=== PATIENT | female | born 1970 | race Caucasian/White ===

== ENCOUNTER → 2019-05-03 17:50 | Outpatient (CLI) | payer OTHER, SELFPAY ==
[2019-05-06 14:29] LABS: HPV Reflexed? NOT INDICATED
== END ==
PROVIDERS: Family Provider Family Medicine; PCP Family Medicine; Referring Provider Nurse Practitioner Adult Health; Visit Provider Nurse Practitioner Adult Health
DX: Z01.419 Encounter for gynecological examination (general) (routine) without abnormal findings (principal)
CPT/HCPCS: 88175; G0145

== ENCOUNTER → 2019-06-09 10:57 | Outpatient (CLI) | payer OTHER, SELFPAY ==
[2019-06-09 12:16] LABS: Anion Gap 6 (5-15); BUN 17 mg/dL (7-18); BUN/Creat Ratio 20.4 RATIO (10-20); Chloride 107 mmol/L (98-107); Cholesterol 181 mg/dL (200); Creatinine, Serum 0.83 mg/dL (0.55-1.02); EST Glomerular Filtration Rate 77 mL/min (>60); Est Glom Filt Rate - Afr Amer 93 mL/min (>60); Glucose 97 mg/dL (74-106); High Density Lipoprotein 67 mg/dL; Potassium 3.9 mmol/L (3.5-5.1); Sodium Level 142 mmol/L (136-145); Thyroid Stim Hormone (TSH) 0.77 uIU/mL (0.358-3.74); Triglycerides 90 mg/dL; Very Low Density Lipoprotein 18 mg/dL (5-40)
== END ==
PROVIDERS: Family Provider Family Medicine; PCP Family Medicine; Referring Provider Nurse Practitioner Adult Health; Visit Provider Nurse Practitioner Adult Health
DX: Z13.220 Encounter for screening for lipoid disorders (principal); Z13.1 Encounter for screening for diabetes mellitus; R68.89 Other general symptoms and signs
CPT/HCPCS: 36415; 80048; 80061; 84443

== ENCOUNTER 2019-11-09 13:00 | Outpatient (RCR) | payer OTHER, SELFPAY ==
--- NOTE | 2019-10-04 16:29 | HP.PTEVAL_ITS ---
Patient's Visit Information AXEL GARDNER is a 49 year old F referred to Physical Therapy by SHERRON Caceres with a diagnosis of neck pain. Date of Evaluation: 10/04/19 Physical Therapist: Deonte Long DPT, OCS, CSCS - Visit Plan Frequency: 2-3x /Week Duration: 2-4 Weeks Plan: 2-3x/week for 2-4 weeks for... 1. STM, manual traction adn passive ext ROM neck with UT stretches and lev scap stretches R to HEP(monitor Danitza with extension ROM and COLLINS/shoulder symptoms). 2. Monitor shoulder pain for activity mdoification for tendonitis and RC adn postural strength. - Subjective Findings: Having pain since beginning of June. Could deal with it but accompanying COLLINS have gotten worse in the last month. Ernesto says tear in R shoulder has caused these sypmtoms. Pain is in R shoulder, up R side of neck adn into jaw and ear and sometimes shooting down arm. pain is intermittent but more consisitent lately. Dressing and undressing woudl make it hurt prior. 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 That job since March. COLLINS start on R posterior occiput and get intense. daily for last 7 days. Gave naproxen 2x/day which has helped. Sleep is OK but hard to get comfortable at times. Not missed any work. Basic ADLs are getting done but frustrating at times. Hobbies include reading and walkign dogs and has been able. - Pain COLLINS Pain Intensity (Out of 10): 3 Pain Intensity Range: 0, 10 Comment: at work is worse. Neck pain R Pain Intensity (Out of 10): 3 Pain Intensity Range: 0, 6 - Objective Posture is forward head and forward shoulder posture. Scapula and elbow adn wrist ROM B WNL without pain. B shoulder ROM full without pain. resisted R shoulder ext rotation adn flexion slightly painful. cervical AROM 35 ext with R neck pain, full flexion, SB adn rotation are symmetricala dn tissue stretching consistently on R side. reflexes 2/3 bi and tri. Sensation WNl to gross light touch in UE>. No myotomal strength abnormalities. Repeated protruision: W neck and into head to 4/10 from baseling 3/10. c/s retraction: NE during, NE 10/24 baseline. repeated ext: centralization 10/24, abolish. + R edgar ma, + R mary. - sulcus. No kassidy tenderness in shoulder or scapular/cervical muscles but R lev scap and UT tight vs L. - Goals Goal 1:: Patient COLLINS abolished and neck pain 80% improved. Goal Time Frame: 4-6 Weeks Goal 2:: Neck Oswestry<10%. Goal Time Frame: 4-6 Weeks Goal 3:: I approp HEP for managemnt of HEP. Goal Time Frame: 4-6 Weeks - Rehabilitation Potential Physical Therapy Diagnosis: cervical derangement vs shoulder pain tendoinitis Rehabilitation Potential: Fair - Anticipated Interventions Patient/Client Instruction: Educate patient on: Condition, Plan of Care For the Purpose of:: To decrease pain, To increase ROM Therapeutic Exercise to Include: Strength training, Postural training, Flexibilty training, Passive ROM, Active ROM For the Purpose of:: To decrease pain, To improve muscle performance and motor function, To increase tolerance to activity/condition/position, To improve gait and locomotor functions Manual Therapy Techniques to Include: Mobilization, Passive ROM, Soft tissue mobilization For the Purpose of:: To decrease pain, To increase ROM, To improve nutrient delivery to tissue, To improve muscle performance and motor function Thank you for the opportunity to evaluate your patient. For Medicare and Medicare HMO plans, please review the plan of care and approve it. It will need to be FAXED BACK to us at [phone] for Medicare purposes. For Medicare only, by signing this I certify the plan of care. Please let me know if there are questions or concerns regarding this plan of care. Physician Signature: ___Date:
--- NOTE | 2019-11-09 13:47 | HP.PTDCSUM ---
HP - PT D/C Summary It has been my pleasure to treat AXEL GARDNER under orders from Clarisa Landrum, SHERRON, for the diagnosis of neck pain for a total of 10 visit(s). Discharge Date: 11/09/19 Please see the following information for a summary of their discharge status. - Subjective Subjective: R shoulder hurting the last two days, slight COLLINS last couple days . 6/10 pain today. Shoulder realy hurts.Does not know why she is hurting lately. - Pain COLLINS Pain Intensity (Out of 10): 0 Neck pain R Pain Intensity (Out of 10): 0 R SH Pain Intensity (Out of 10): 6 Left pain neck Pain Intensity (Out of 10): 0 - Overall Improvement % Improvement: 50 - Objective Objective/Function: Full aROM neck to 90 ext adn 80 B rotation adn 20 SB without pain. No tenderness in neck. UE AROM WFL today with some slight increased discomfort end of flexion but no painful arc. Strength is 4- in shoulder without obvious pain. - ext rotation lag test. - drop arm. + hernández anil but pain is not responding like impingement and rotations resisted do not cause pain. No tenderness in supra or infra or subscap. Overall , COLLINS AND NECK PAIN MUCH BETTER BUT SHOULDER PAIN RIGHT IS INTERMITTENT AND SEEMINGLY WITHOUT OBVIOUS PATTERN. - Goals Goal 1:: Patient COLLINS abolished and neck pain 80% improved. Goal Progress: Goal Met, for most part Goal 2:: Neck Oswestry<10%. Goal Progress: 20% Goal 3:: I approp HEP for managemnt of HEP. Goal Progress: Goal Met - Plan Plan: recommend return to doctor for next medical step due to lack of progress with shoulder pain. - D/C Information Discharge Comments: Pt progressed well with neck and COLLINS pain. R shoulder pain continues to be an intermittent issue without obvious pattern. recommend return to physician for next appropriate medical step. If there are questions or concerns regarding this patient's physical therapy, please feel free to call me at [phone]. Thank you for the referral of this patient. Sincerely, Deonte Long, DPT, OCS, CSCS
== END 2019-11-09 19:00 | disposition home or self-care (01) ==
LOC: PT 13:00
PROVIDERS: PCP Family Medicine; Referring Provider Nurse Practitioner Family; Visit Provider Nurse Practitioner Family
DX: M54.2 Cervicalgia (principal)
CPT/HCPCS: 97035; 97110; 97140; 97161; 97164; 97530

== ENCOUNTER → 2019-11-10 10:02 | Outpatient (CLI) | payer OTHER, SELFPAY ==
--- NOTE | 2019-11-10 10:05 | RAD_ITS ---
STUDY: X-RAY - CERVICAL SPINE REASON FOR EXAM: Female, 49 years old. right shoulder pain goes up the neck x 4 months no injury TECHNIQUE: 5 view(s) of the cervical spine were obtained. COMPARISON: 11/22/2013 FINDINGS: Normal anterior atlantoaxial articulation. Normal odontoid process. There is reversal of the normal cervical lordosis. Focal disc space narrowing and osteophyte formation at C5/C6 consistent with degenerative disc disease with focal kyphosis. Normal visualized intervertebral neuroforamina. The soft tissue structures are unremarkable. RAD/Cerv Spine 4 or 5 Views IMPRESSION: Continued focal degenerative disc disease at C5/C6 with focal kyphosis. Electronically Signed: Rashi Gaspar MD at 13:48 EST Tel , Service support ,
--- NOTE | 2019-11-10 10:05 | RAD_ITS ---
STUDY: X-RAY - RIGHT SHOULDER REASON FOR EXAM: Female, 49 years old. right shoulder pain goes up the neck x 4 months no injury TECHNIQUE: 4 view(s) of the shoulder. COMPARISON: None. FINDINGS: Normal glenohumeral articulation. Normal acromioclavicular joint. Normal acromion. Normal humeral head and visualized proximal humerus. The soft tissue structures are unremarkable. Normal visualized pulmonary apex. RAD/Shoulder min 2 Views IMPRESSION: Normal x-ray examination of the shoulder. Electronically Signed: Rashi Gaspar MD at 11:48 EST Tel , Service support ,
== END ==
PROVIDERS: PCP Family Medicine; Referring Provider Family Medicine; Visit Provider Family Medicine
DX: M54.2 Cervicalgia (principal); M75.41 Impingement syndrome of right shoulder
CPT/HCPCS: 72050; 73030

== ENCOUNTER → 2019-11-23 16:57 | Outpatient (CLI) | payer OTHER, SELFPAY ==
--- NOTE | 2019-11-23 17:00 | MRI_ITS ---
STUDY: MRI CERVICAL SPINE WITHOUT CONTRAST REASON FOR EXAM: Female, 49 years old. DDD. Neck pain into jaw and into shoulders into back of head causing H/A TECHNIQUE: Standardized fat and water weighted pulse sequences were obtained in the sagittal and axial planes. COMPARISON: None FINDINGS: Normal foramen magnum and brainstem-cervical cord junction. Normal craniovertebral junction. Normal anterior atlantoaxial articulation. Normal odontoid process. Decreased cervical lordosis. Normal vertebral bodies and posterior osseous elements. C2-3: Normal endplates. Normal disc height, signal and morphology. Normal central canal and intervertebral neural foramina. C3-4: Normal endplates. Normal disc height, signal and morphology. Normal central canal and intervertebral neural foramina. C4-5: Normal endplates. Normal disc height, signal and morphology. Normal central canal and intervertebral neural foramina. C5-6: Narrowed disc space and endplate spurring in association with tiny central disc protrusion and mild bulging disc osteophyte complex. There is mild narrowing of the central canal and mild impingement upon the ventral surface of the thecal sac and cord. There is moderate right neural foraminal stenosis and more severe narrowing on the left secondary to bony hypertrophy. C6-7: Minor endplate spurring.. Normal disc height, signal and morphology. Normal central canal. Mild bilateral neural foraminal encroachment secondary to bony hypertrophy. C7-T1: Normal endplates. Normal disc height, signal and morphology. Normal central canal and intervertebral neural foramina. Normal cervical cord. Normal visualized soft tissue structures. MRI/Spine Cervical (Routine) IMPRESSION: No evidence for acute fracture or other significant bony pathology. Mild spondylosis most severe at C5-6 where there is mild narrowing the central canal and impingement upon ventral surface of thecal sac and cord as well as bilateral neuroforaminal stenosis more severe on the left secondary to bony hypertrophy. Mild bilateral neural foraminal encroachment secondary to bony hypertrophy at C6-7 Electronically Signed: Cleveland Hayden MD at 19:34 EDT , Service support ,
== END ==
PROVIDERS: PCP Family Medicine; Referring Provider Family Medicine; Visit Provider Family Medicine
DX: M50.30 Other cervical disc degeneration, unspecified cervical region (principal)
CPT/HCPCS: 72141

== ENCOUNTER → 2022-08-14 | Outpatient (CLI) | payer OTHER, SELFPAY ==
--- NOTE | 2022-08-14 12:04 | BI_ITS ---
MAMMOGRAPHY - BILATERAL SCREENING REASON FOR EXAM: Female, 51 years old. Routine annual screening examination. PERTINENT HISTORY: Non-contributory. Remote left middle breast biopsy. TECHNIQUE: Digital bilateral breast tania (3D mammographic acquisition) in the CC and MLO projections. 2-D mediolateral oblique (MLO) and craniocaudad (CC) views of both breasts were obtained. CAD: Full Field Digital Mammography with Computer Added Detection was performed. COMPARISON: None. Baseline examination. FINDINGS: Breast Composition: The breasts are extremely dense, which lowers the sensitivity of mammography. There are no dominant masses or suspicious calcifications. No other significant abnormalities are identified. BI/SCRN MAMM (CAD)W/TANIA BILAT IMPRESSION: Negative screening mammogram. Yearly followup mammogram recommended. (A) ASSESSMENT CATEGORY: BIRADS Category 1: Negative. A letter regarding these results will be sent to the patient by the facility within 30 days. Approximately 10% of breast cancers are not detected by mammography. A normal mammogram should not delay biopsy of a clinically suspicious abnormality. [id number] Electronically Signed: Amado Mckeon MD at 10:22 EST ,
== END | disposition home or self-care (01) ==
LOC: OPBI 12:03
PROVIDERS: PCP Family Medicine; Visit Provider Family Medicine
DX: Z12.31 Encounter for screening mammogram for malignant neoplasm of breast (principal)
CPT/HCPCS: 77063; 77067

== ENCOUNTER 2023-07-28 13:00 | Outpatient (RCR) | payer OTHER, SELFPAY ==
--- NOTE | 2023-07-07 11:30 | HP.PTEVAL_ITS ---
Patient's Visit Information Visit Information Visit Information: AXEL GARDNER is a 52 year old F referred to Physical Therapy by Dr. Bal Rizvi MD with a diagnosis of L shoulder impingement. Date of Evaluation: 07/07/23 Physical Therapist: Deonte Long, DPT, OCS, CSCS Visit Plan Frequency: 3x /Week Duration: 4-6 Weeks Plan: 3x/week for 2-4 weeks to start for US nonthermal to L shoulder supras pinatus, grade 2-4 mobs L shoulder to tolerance, strength of RC and scap to HEP. PROM as needed. ice as needed. Subjective Subjective: L shoulder hurting since October insidiously. No trauma. it is worsening. had steroid injection in neck which did not help and ortho said it is shoulder. Pain is top of L shoulder and can shoot down with movement. Comfortable at rest outside of dull ache at times. Reaching for seatbelt or behind her is painful. Sleep is rough, hard to get comfy, likes sleeping on L side. 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 No real problems at work. Basic ADLs are done, dressing getting arm out can hurt,. Hobbies: Reading , walking and playing with dog are Ok. Injection helped 40% Pain L shoulder: Pain Intensity (Out of 10): 0 Pain Intensity Range: 0 and 9 Comment: sharp sudden and transient. Objective Objective: Walks and transfers I without pain. Cervical and scap aROM WFL and without pain Elbow and wrist AROM WFL and no pain. R shoulder full aROM to 160 flexion, 78 er, l1 IR L shoulder is near full but pain at 145 flexion and 60 abduction and psis IR. Tender to touch over supraspinatus on L shoulder vs R. moderately. - drop arm - ext rotation lag test + HK and neer impingement tests. reflexes 2/3 bi and tri B. Sensation UE WNL to gross light touch. Strength in elbows and wrists symmetrical and strong without pain. shoulder er 4- L vs 4 R and painful slightly on L, IR 4 B, flexion 4- L and 4 r with some pain L especially in empty can position. Balance/Special Test Scores Quick DASH Score: 18.1800 Goals Goal 1:: Pt feel 80% better in L shoulder and I management of condition with HEP Goal Time Frame: 4-6 Weeks Goal 2:: pot able to lift arm to get dressed without noticing L shoulder pain Goal Time Frame: 4-6 Weeks Goal 3:: sleep for one week without discomfort from L shoulder Goal Time Frame: 4-6 Weeks Goal 4:: quick dash score 13 or better Goal Time Frame: 4-6 Weeks Rehabilitation Potential Physical Therapy Diagnosis: L shoulder weakness and pain effecting funciton consistent with impingement tendonitis. Rehabilitation Potential: Good Anticipated Interventions Patient/Client Instruction: Educate patient on: Condition and Plan of Care For the Purpose of:: To decrease pain, To increase ROM, To improve nutrient delivery to tissue, To improve muscle performance and motor function and To increase tolerance to activity/condition/position Therapeutic Exercise to Include: Strength training, Flexibilty training, Passive ROM and Active ROM For the Purpose of:: To decrease pain, To increase ROM, To improve nutrient delivery to tissue, To improve muscle performance and motor function and To increase tolerance to activity/condition/position Manual Therapy Techniques to Include: Mobilization, Passive ROM and Soft tissue mobilization For the Purpose of:: To increase ROM and To improve nutrient delivery to tissue Cryotherapy (ice pack, ice massage): Yes Ultrasound (thermal/non thermal): Yes (nonthermal) For the Purpose of:: To decrease pain, To decrease swelling/inflammation and To improve nutrient delivery to tissue Text: Thank you for the opportunity to evaluate your patient. For Medicare and Medicare HMO plans, please review the plan of care and approve it. It will need to be FAXED BACK to us at [phone] for Medicare purposes. For Medicare only, by signing this I certify the plan of care. Please let me know if there are questions or concerns regarding this plan of care. Physician Signature: Date:
--- NOTE | 2023-07-28 13:49 | HP.PTREVAL ---
Re-Evaluation Intro: Dr. Bal Rizvi MD, It has been my pleasure to treat AXEL GARDNER over the last 7 visits for L shoulder impingement. Please see the progress note below for an update on the physical therapy plan of care! Subjective Subjective: ROM is better. Pain is better and gone at rest. Hurts to move it but better at rest. pain outside of exercises is 7/10 reaching for something. Pain is only when i move shoulder. No neck pain. to Dr. Rizvi. Sleep is OK. Objective Objective/Function: 3 weeks in patient is 60% better which is good. her neck ROM is full without pain. her shoulder ROM is full but end range pain with abduction/er/ir and still feels tight passivley. strength isimproving but painful with abduction and er/ir. Overall improved and appropriate to continue PT if no other recommendations from Doctor. Still present swith impingement and no signs of neck problems or other shoulder issues like RCT or labral pathology. Plan Plan Plan: continue 2-3x/week US, progressive scap adn RC strength, PROM end range stretches and mobs. Pt to see doctor in two days and schedule afterwards or let us know if he has other plans. Balance/Gait/Functional tests Balance/Special Test Scores Quick DASH Score: 18.1800 Goals Goals Goal 1:: Pt feel 80% better in L shoulder and I management of condition with HEP Goal Time Frame: 4-6 Weeks Goal Progress: 60% Goal 2:: pot able to lift arm to get dressed without noticing L shoulder pain Goal Time Frame: 4-6 Weeks Goal Progress: Not Progressing Goal 3:: sleep for one week without discomfort from L shoulder Goal Time Frame: 4-6 Weeks Goal Progress: Goal Met Goal 4:: quick dash score 13 or better Goal Time Frame: 4-6 Weeks Goal Progress: Progressing Anticipated Interventions Anticipated Interventions Patient/Client Instruction: Educate patient on: Condition and Plan of Care For the Purpose of:: To decrease pain, To increase ROM, To improve nutrient delivery to tissue, To improve muscle performance and motor function and To increase tolerance to activity/condition/position Therapeutic Exercise to Include: Strength training, Flexibilty training, Passive ROM and Active ROM For the Purpose of:: To decrease pain, To increase ROM, To improve nutrient delivery to tissue, To improve muscle performance and motor function and To increase tolerance to activity/condition/position Manual Therapy Techniques to Include: Mobilization, Passive ROM and Soft tissue mobilization For the Purpose of:: To increase ROM and To improve nutrient delivery to tissue Cryotherapy (ice pack, ice massage): Yes Ultrasound (thermal/non thermal): Yes (nonthermal) For the Purpose of:: To decrease pain, To decrease swelling/inflammation and To improve nutrient delivery to tissue Re-Evaluation Ending Re-evaluation ending: Please do not hesitate to contact me at [phone] by phone or if you have questions or concerns regarding this new plan of care! Sincerely, Deonte Long, DPT, OCS, CSCS
--- NOTE | 2023-09-24 13:07 | HP.PT.NRP ---
Patient Information Patient Information: AXEL GARDNER was seen in my office for initial evaluation on 07/07/23. The following Plan of Care was established for this patient: POC Established Initial Frequency: 3x /Week Initial Duration: 4-6 Weeks Anticipated Interventions Patient/Client Instruction: Educate patient on: Condition and Plan of Care For the Purpose of:: To decrease pain, To increase ROM, To improve nutrient delivery to tissue, To improve muscle performance and motor function and To increase tolerance to activity/condition/position Therapeutic Exercise to Include: Strength training, Flexibilty training, Passive ROM and Active ROM For the Purpose of:: To decrease pain, To increase ROM, To improve nutrient delivery to tissue, To improve muscle performance and motor function and To increase tolerance to activity/condition/position Manual Therapy Techniques to Include: Mobilization, Passive ROM and Soft tissue mobilization For the Purpose of:: To increase ROM and To improve nutrient delivery to tissue Cryotherapy (ice pack, ice massage): Yes Ultrasound (thermal/non thermal): Yes (nonthermal) For the Purpose of:: To decrease pain, To decrease swelling/inflammation and To improve nutrient delivery to tissue Last Seen Last Seen: This patient was last seen in our office 07/28/23. Pertinent comments regarding their Physical therapy will appear below: Pt seen 7 visits of POC and was 60% better at last recheck. She was to f/u with doctor and call to continue plan of care if that is what doctor decided. At this point, it has been nearly two months and I will discontinue due to nonattendance. At this point I will be discontinuing this patient from physical therapy. I would be happy to see this patient again in the future if found appropriate by the physician. Thank you! Deonte Long, DPT, OCS, CSCS Balance/Gait/Functional tests Balance/Special Test Scores Quick DASH Score: 18.1800
== END 2023-07-28 19:00 | disposition home or self-care (01) ==
LOC: PT 13:00
PROVIDERS: PCP Family Medicine; Referring Provider Orthopaedic Surgery Orthopaedic Surgery of the Spine; Visit Provider Orthopaedic Surgery Orthopaedic Surgery of the Spine
DX: M25.812 Other specified joint disorders, left shoulder (principal)
CPT/HCPCS: 97035; 97110; 97161; 97530

== ENCOUNTER → 2023-08-24 | Outpatient (CLI) | payer OTHER, SELFPAY ==
--- NOTE | 2023-08-24 15:30 | MRI_ITS ---
EXAM: MR LEFT UPPER EXTREMITY WITHOUT INTRAVENOUS CONTRAST, SHOULDER CLINICAL INDICATION: pain TECHNIQUE: Multiplanar and multisequence MR images of the left shoulder without intravenous contrast. COMPARISON: July 02, 2023 FINDINGS: TENDONS: SUPRASPINATUS: Unremarkable. Intact. INFRASPINATUS: Unremarkable. Intact. SUBSCAPULARIS: Unremarkable. Intact. TERES MINOR: Unremarkable. Intact. BICEPS BRACHII, LONG HEAD: Unremarkable. The extra-articular biceps tendon is in the bicipital groove. The intra-articular biceps tendon is normal. LIGAMENTS: GLENOHUMERAL: Unremarkable. Intact. MUSCLES: Unremarkable. No rotator cuff muscle atrophy. FLUID: [id number] amount of fluid in the subacromial/subdeltoid bursa. No joint effusion. CARTILAGE: Unremarkable. Articular cartilage intact. GLENOID LABRUM: Unremarkable. Intact, limited evaluation on non-arthrographic exam. BONES/JOINTS: A type I acromion with flat undersurface. No subacromial enthesophyte or os acromiale. Mild degenerative changes of the acromioclavicular joint without significant mass effect on the underlying soft tissues. No fracture. No abnormal bone marrow signal. OTHER SOFT TISSUES: Unremarkable. No rotator interval edema. MRI/Upper Ext Joint Only(Routine) IMPRESSION: 1. Subacromial/subdeltoid bursitis. 2. No rotator cuff or labral tear. Electronically Signed: Stanley Arias MD at 23:16 EST ,
== END | disposition home or self-care (01) ==
LOC: MRI 15:07
PROVIDERS: PCP Family Medicine; Referring Provider Orthopaedic Surgery Orthopaedic Surgery of the Spine; Visit Provider Orthopaedic Surgery Orthopaedic Surgery of the Spine
DX: R52 Pain, unspecified (principal)
CPT/HCPCS: 73221

== ENCOUNTER → 2023-08-26 | Outpatient (CLI) | payer OTHER, SELFPAY ==
--- NOTE | 2023-08-26 14:04 | BI_ITS ---
MAMMOGRAPHY - BILATERAL SCREENING REASON FOR EXAM: Female, 52 years old. Routine annual screening examination. PERTINENT HISTORY: Non-contributory. Remote left needle breast biopsy. TECHNIQUE: Digital bilateral breast tania (3D mammographic acquisition) in the CC and MLO projections. 2-D mediolateral oblique (MLO) and craniocaudad (CC) views of both breasts were obtained. CAD: Full Field Digital Mammography with Computer Added Detection was performed. COMPARISON: Comparison is made with prior study dated August 14, 2022. FINDINGS: Breast Composition: The breasts are extremely dense, which lowers the sensitivity of mammography. There are no dominant masses or suspicious calcifications. No other significant abnormalities are identified. There has been no significant change since the prior study. BI/SCRN MAMM (CAD)W/TANIA BILAT IMPRESSION: Stable bilateral screening mammogram. Yearly follow-up mammogram recommended. (A) ASSESSMENT CATEGORY: BIRADS Category 1: Negative. A letter regarding these results will be sent to the patient by the facility within 30 days. Approximately 10% of breast cancers are not detected by mammography. A normal mammogram should not delay biopsy of a clinically suspicious abnormality. [id number] Electronically Signed: Amado Mckeon MD at 15:13 EST ,
== END | disposition home or self-care (01) ==
LOC: OPBI 14:03
PROVIDERS: PCP Family Medicine; Referring Provider Family Medicine; Visit Provider Family Medicine
DX: Z12.31 Encounter for screening mammogram for malignant neoplasm of breast (principal)
CPT/HCPCS: 77063; 77067

== ENCOUNTER 2023-10-14 05:56 | Day surgery (SDC) | payer OTHER, SELFPAY ==
[2023-10-14] VITALS (8 sets, daily range): BP systolic 132–155; BP diastolic 66–92; PULSE 67–90; RESP 14–16; TEMP 36.3–37.3; O2SAT 93–99; BMI 22.1
[2023-10-14] MEDS: Lactated Ringers 1,000 ML 15 ML IV (06:35)
--- NOTE | 2023-10-14 07:06 | PCM.HP.STD ---
HPI - General HPI Narrative AXEL GARDNER, is a 53 F who presents for left shoulder arthroscopy, subacromial decompression, debridement. no changes to h and p. shoulder marked. rab narcotic counselling and post op instructions. MR#: [id number] Acct: [id number] Name: AXEL GARDNER Rep #: [id number] : 1970 Provider: Dr. Krishan Palmer MD Age/Sex: 53/F Location: [facility] [place] Status: Signed Intake Vital Signs 07/02/2313:23 08/25/2314:21 Height 5 ft 2 in 5 ft 2 in Intake Visit Reasons: left shoulder Chief Complaint: Cervical spine Is patient in pain?: Yes Allergies Gadolinium-MRI Contrast Medium [Gadolinium-Containing Contrast Medi] Allergy (Mild, Verified 08/31/23 09:59) Rash Medications naproxen 500 mg tablet mg PO 07/02/23 [History Confirmed 08/31/23] rizatriptan 10 mg tablet mg PO 07/02/23 [History Confirmed 08/31/23] ubrogepant 100 mg tablet (Ubrelvy) mg PO 07/02/23 [History Confirmed 08/31/23] PFSH Family History Father HypertensionMother Multiple sclerosis HPI left shoulder Details: This documentation accurately reflects the service provided and the decisions made by me, Dr. Krishan Palmer MD 08/31/23 0955. Part of today?s visit was documented by [ ], acting as scribe. AXEL GARDNER is a 53 year old F here today for FU L shoulder MRI, had an injection and PT. The injection was 2 months ago in June. 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 Patient especially has shoulder pain with the lifting IV bags and having to carry heavy buckets. Ortho Exam General General: Yes no acute distress Neurologic: Yes alert and Yes oriented x3 Psychologic: Yes reasonable and appropriate Left Shoulder Skin/Wound: Yes CDI, No ecchymosis, No erythema and No swelling Testing: Yes Hawkin's, Yes Neer's, No Speed's, No TTP Biceps, No TTP AC Joint, Yes AROM-Forward Elevation 0-180, Yes AROM-External Rotation at side 0-60, Yes empty can, No [place], No scapular winging and Yes belly press normal SHOULDER: normal motor and sens to axillary N, MRU and AIN/PIN. Hand warm well perfused normal radial pulse Supplemental Info [facility] Imaging Services [address] [place] [address] Upper Ext Joint Only(Routine) MR#: [id number] Acct: [id number] Name: AXEL GARDNER Rep #: [id number] : 1970 F 52 From: Stanley Arias MD PCP: Dr. Easton Amos MD Status: REG CLI Study: Upper Ext Joint Only(Routine) Date of Exam: 08/24/23 Exam# [id number] Ordering Dr: Bal Rizvi MD EXAM: MR LEFT UPPER EXTREMITY WITHOUT INTRAVENOUS CONTRAST, SHOULDER CLINICAL INDICATION: pain TECHNIQUE: Multiplanar and multisequence MR images of the left shoulder without intravenous contrast. COMPARISON: July 02, 2023 FINDINGS: TENDONS: SUPRASPINATUS: Unremarkable. Intact. INFRASPINATUS: Unremarkable. Intact. SUBSCAPULARIS: Unremarkable. Intact. TERES MINOR: Unremarkable. Intact. BICEPS BRACHII, LONG HEAD: Unremarkable. The extra-articular biceps tendon is in the bicipital groove. The intra-articular biceps tendon is normal. LIGAMENTS: GLENOHUMERAL: Unremarkable. Intact. MUSCLES: Unremarkable. No rotator cuff muscle atrophy. FLUID: Odaml-aq-mryafumk amount of fluid in the subacromial/subdeltoid bursa. No joint effusion. CARTILAGE: Unremarkable. Articular cartilage intact. GLENOID LABRUM: Unremarkable. Intact, limited evaluation on non-arthrographic exam. BONES/JOINTS: A type I acromion with flat undersurface. No subacromial enthesophyte or os acromiale. Mild degenerative changes of the acromioclavicular joint without significant mass effect on the underlying soft tissues. No fracture. No abnormal bone marrow signal. OTHER SOFT TISSUES: Unremarkable. No rotator interval edema. MRI/Upper Ext Joint Only(Routine) IMPRESSION: 1. Subacromial/subdeltoid bursitis. 2. No rotator cuff or labral tear. Electronically Signed: Stanley Arias MD at 23:16 EST , Coding Level of Care Code Off vis,est,level 3 Diagnoses Impingement of left shoulder M25.812 Chronic left shoulder pain M25.512; G89.29 Chronicity: chronic Assessment and Plan Assessment and Plan (1) Impingement of left shoulder: Status: Acute Plan: 53 F L shoulder MRI showing bursitis, no cuff tear. The patient has tried extensive conservative management including cortisone injections and physical therapy. They are desiring a surgical solution to the problem although they could also consider continuing nonsurgical management and other treatment options like rest ice anti-inflammatories and activity modifications. Surgery would be in the form of left shoulder arthroscopy, subacromial decompression, debridement. Patient wishes to proceed and we will try to find the best time for that. Pros and cons risks and benefits were discussed with the patient including but not limited to infection, pain, stiffness, bleeding, damage to surrounding structures, neurovascular injury, recurrence or retear, failure or wear of hardware or fixation, instability, fracture, deep vein thrombosis and pulmonary embolism, anesthetic risks, , patient dissatisfaction, need for further surgery and other risks. Patient understood and wished to proceed with surgery, and signed the informed consent documentation. [facility] Medical History (Updated 10/07/23 @ 15:03 by Gita Carson) Migraine headache Non-smoker Post-menopausal Wears glasses Home Medications naproxen 500 mg tablet 500 mg PO Q12H PRN pain 07/02/23 [History Last Taken Unknown] rizatriptan 10 mg tablet 10 mg PO Q2H PRN migraine headache 07/02/23 [History Last Taken 10/10/23] erenumab-aooe 70 mg/mL subcutaneous auto-injector (Aimovig Autoinjector) 70 mg subcut Q30D HEADACHES 10/07/23 [History Last Taken 09/14/23] Allergy/AdvReac Type Severity Reaction Status Date / Time Gadolinium-MRI Contrast Allergy Mild Rash Verified 10/14/23 06:22 Medium [Gadolinium-Containing Contrast Medi] Family History Father Hypertension Mother Multiple sclerosis Surgical History (Updated 10/07/23 @ 14:51 by Gita Carson) No history of previous surgery Social History Smoking Status: Never smoker Vital Signs Vital Signs Vital Signs: 10/14/23 06:23 10/14/23 06:23 Temperature 97.9 F Temperature Source Temporal Pulse Rate 76 Respiratory Rate 14 Respiratory Pattern Normal Blood Pressure 155/89 H Blood Pressure Mean 111 Blood Pressure Source Monitor Blood Pressure Position Semi-Fowlers Blood Pressure Location Left Arm Pulse Ox 99 Oxygen Delivery Method Room Air Weight Weight: 121 lb 4.068 oz Body Mass Index (BMI) 22.1
[2023-10-14] MEDS: Cefazolin 2 GM in 0.9% Normal Saline (100mL Bag) 100 ML IV (07:30)
[2023-10-14] MEDS: Epinephrine (1 mg/ml) 1 MG/ML VIAL (08:06)
--- NOTE | 2023-10-14 08:27 | PCM.OPRPT ---
Problems Associated Problem List Diagnoses (1) Impingement of left shoulder: (2) Left shoulder pain: Report of Operation Date of Procedure: 10/14/23 Pre-Operative Diagnosis: L shoulder impingement and bursitis Post-Operative Diagnosis: same Surgery/Procedure Performed:: left shoulder arthroscopy, subacromial decompression, debridement Surgeon: alanna Type of Anesthesia: Block,Regional and General Anesthesiologist: Jesse Mares Estimated Blood Loss (mL): 25 Description of Procedure: Patient brought to the operating room theater. Placed supine on the operating room table. 2 g IV Ancef administered prior to the start of the case. General anesthesia induced. Patient transferred left side up lateral decubitus beanbag positioner. Axillary roll was used. All bony prominences padded. SCDs on the leg. Upper extremity 5 pounds inline traction with the arm in 35 degrees of abduction. Upper extremity prepped and draped in the usual sterile fashion with chlorhexidine-based prep solution allowing over 3 minutes drying time prior to draping. Preoperative timeout performed to confirm the site patient and the surgery. Began by inserting a arthroscope into the intra-articular portion of the shoulder through a standard posterior arthroscopy portal. Did a full diagnostic arthroscopy. Cartilage and glenoid and humeral head was normal. Biceps long head tendon appeared to intact no SLAP tear. Slight fraying of the labrum. There is some mild inflammatory synovitis anteriorly. I used inside-out spinal needle localization through the rotator interval just posterior to the biceps tendon to perform an anterior arthroscopy portal. I used the ablator instrument to remove the synovitis. Axillary recess was normal. Undersurface the rotator cuff tendons as well as the subscapularis was normal. I then placed the arthroscope into the subacromial space. Established lateral portal. Minor amount of bursitis I performed a complete bursectomy. Then did a subacromial decompression for 4 mm using a chana, and taken down the leading edge of the CA ligament. I probed the superior aspect of the rotator cuff this was intact and no partial or full-thickness tears. Arthroscopy pictures taken and saved onto the system throughout the case. Case terminated wound thoroughly irrigated. Portals closed with 3-0 Monocryl suture. Skin cleaned with wet dry dressing followed application of Steri-Strips Adaptic 4 x 4 gauze ABD dressing and cloth tape with a sling for the upper extremity. Patient woken up from a general anesthetic transfer off the operating table taken postanesthetic care unit in stable condition. All sponge needle instrument counts were correct. cpt 84884 and 64745? Complications none Admit VTE Documentation VTE Present on Admission: No VTE Mechan Device Prophylaxis: SCD's VTE Pharm Prophylaxis ordered?: No Reason prophylaxis not ordered:: Treatment Not Indicated Procedures Musculoskeletal 20xxx-29xxx: Other Procedure See Report
--- NOTE | 2023-10-14 08:32 | DCINST_ITS ---
Discharge Instructions Diet Discharge Diet: No restrictions Activity Discharge Activity: Return to Normal Activity Lifting Restrictions: no heavy lifting, ok for full rom of shoulder elbow wrist as tolerated Additional Activity Instructions:: sling for comfort Dressing / Incision Call your doctor if your incision/area has: Continuous Slow Oozing, Sudden Increased Bleeding, Increased Pain/ Swelling, Increased Redness, Foul Smelling Discharge and Swelling at the incision site Remove Dressing in: leave in place till F/U Follow Up Care When: 2 days Test Results: Test results from this visit will be discussed in further detail at your follow- up appointment, if applicable. Discharge Plan Admission Attending Provider: Krishan Palmer Primary Care Provider: Easton Amos Instructions Patient Instructions: After Shoulder Arthroscopy Discharge Orders/Prescriptions Prescriptions: New oxycodone-acetaminophen [Endocet] 5-325 mg tablet 1 tab PO Q4H MDD 6 PRN (Reason: pain) 5 Days Qty: 20 0RF No Action rizatriptan 10 mg tablet 10 mg PO Q2H PRN (Reason: migraine headache) Patient Comments: TAKE 1 TABLET BY [id number] IN 2 HOURS IF NOT EFFECTIVE, MAX 2 TABLETS PER DAY naproxen 500 mg tablet 500 mg PO Q12H PRN (Reason: pain) Patient Comments: TAKE 1 TABLET BY MOUTH 2CTIMES A DAY Aimovig Autoinjector 70 mg/mL auto-injector 70 mg SUBCUT Q30D Patient Comments: INJECT ONE PENtSUBCUTANEOUSLY EVERYNMONTHi Referrals / Follow Up: Easton Amos MD [Primary Care Provider] - Krishan Palmer MD [Med Staff - Active Staff] - Disposition Disposition (needs filled in before D/C Order can be placed): Home, Self Care
== END 2023-10-14 11:12 | disposition home or self-care (01) ==
LOC: SDC 05:57 → AC 05:58
PROVIDERS: PCP Family Medicine; Referring Provider Orthopaedic Surgery Sports Medicine; Visit Provider Orthopaedic Surgery Sports Medicine
PROC: (CPT 29805; principal; 2023-10-14 07:10)
DX: M25.512 Pain in left shoulder (principal); G89.29 Other chronic pain; M75.50 Bursitis of unspecified shoulder
CPT/HCPCS: 29826; 29820; 93005; J7120; J2405

== ENCOUNTER → 2023-11-20 | Outpatient (CLI) | payer OTHER, SELFPAY ==
[2023-11-20 18:16] LABS: Hemoglobin A1c 5.5 % (3.8-5.6)
[2023-11-20 18:27] LABS: Thyroid Stim Hormone (TSH) 1.58 uIU/mL (0.358-3.74)
== END | disposition home or self-care (01) ==
LOC: MTLAB 15:11
PROVIDERS: PCP Family Medicine; Referring Provider Orthopaedic Surgery Sports Medicine; Visit Provider Orthopaedic Surgery Sports Medicine
DX: M75.02 Adhesive capsulitis of left shoulder (principal)
CPT/HCPCS: 36415; 83036; 84443

== ENCOUNTER 2024-04-06 11:30 | Outpatient (RCR) | payer OTHER, SELFPAY ==
--- NOTE | 2023-11-25 17:48 | HP.PTEVAL ---
Patient's Visit Information Visit Information Visit Information: AXEL GARDNER is a 53 year old F referred to Physical Therapy by Dr. Krishan Palmer MD with a diagnosis of ADHESIVE CAPSULITIS OF LEFT SHOULDER ,PAIN IN LEFT SHOULDER, DISORDER. Date of Evaluation: 11/25/23 Physical Therapist: Mike Diaz, PT, Cert MDT, OCS Visit Plan Frequency: 2x /Week Duration: 8 WEEKS Plan: PT INTERVENTIONS MANUAL THERAPY G-H MOBILIZATION GRADE 2-4 ,SCAPULAR MOBS ,PROM/STRETCHING SHOULDER(ESTHER'S) ,PROGRESS TO RTC AND SCAPULAR STRENGTHENING , AND CP/MHP Subjective Subjective: This 53 y/o female presents to physical therapy with adhesive capsulitis. Patient underwent s/p arthroscopic subacromial decompression and debridement on Oct [address] Palmer at [facility] .Patient had MRI prior to surgery. Patient was trying to do ex's at home. Patient had limited ROM prior to surgery along pain persisted prior to surgery . Seen DR 11/20/23 has frozen shoulder. Patient was given cortisone for pain. Medication: Naproxen Patient has global pain radiates up to neck and arm. Described as dull ache shooting up to side neck. Aggravating factors lifting OH ,ADLS and self hygiene ,reaching behind back with patient being left hand dominant. Pain will affects sleeping. Denies paresthesia/tingling -. Patient RTW 01/04/24. Patient condition affects QOL and function/housework with LUE. Patient goal RTW and return to normal. 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 Pain Left Shoulder: Pain Intensity (Out of 10): 5 Pain Intensity Range: 10 Objective Objective: POSTURE: mild posture rounded shoulders head forward PALPATION: tender levator/UT NEURO: denies paresthesia/tingling AROM: shoulder flexion 80 degrees ,abduction 80 degrees with substitution shoulder PROM: shoulder flexion 110 degrees ,abduction 110 degrees ,ER 45 degrees ,IR 20 degrees ,shoulder extension 10 degrees CAPSULAR RESTRICTION G-H: mod/severe tightness MMT: ( peak force: ) 0 SCAPULAR -HUMERAL FUNCTION: < 1:1 ratio Special Tests L Shoulder Drop Sign - IS Test: Negative L Shoulder Empty Can - SS: Positive L Shoulder Belly Press - SupScap: Negative L Shoulder Neer - Impingement: Positive L Shoulder Garcia Abhishek - Impingement: Positive L Shoulder Speeds Test - Labrum/Biceps: Negative L Shoulder Sulcus Sign - Inferior Laxity: Negative Balance/Special Test Scores Quick DASH Score: 63.6350 Goals Goal 1:: Patient to improve HEP Goal Time Frame: 6-8 Weeks Goal 2:: Patient to improve AROM shoulder flexion /abduction 135 degrees ,ER 75> degrees and IR L2 physiological motion and scapular humeral rhythm to improve ADL's and function. Goal Time Frame: 6-8 Weeks Goal 3:: Patient to improve peak force RTC and deltoid by 20# to improve ADLS and housework tasks Goal Time Frame: 6-8 Weeks Goal 4:: Patient to demonstrate 70% improvement with increase function LUE and less pain. Goal Time Frame: 6-8 Weeks Goal 5:: Patient to improve quick dash score by 5-10 points to improve QOL and function Goal Time Frame: 6-8 Weeks Rehabilitation Potential Physical Therapy Diagnosis: This patient has a frozen shoulder post surgery arthroscopic subacromial decompression with mod/severe G-H scapular restriction with poor ROM affects strength and function with ADLADHES's and housework tasks and RTW thus benefit from skilled Rehabilitation Potential: Good Anticipated Interventions Patient/Client Instruction: Educate patient on: Condition and Plan of Care For the Purpose of:: To decrease pain, To increase ROM, To improve muscle performance and motor function, To improve ability to perform ADL's, To increase tolerance to activity/condition/position, To improve ability of physical actions for home/community/work/leisure, To improve health of tissue, To decrease soft tissue restriction, To increase flexibility/ROM and To improve tolerance to ADL's Therapeutic Exercise to Include: Strength training, Postural training, Flexibilty training, Passive ROM, Active ROM and Scapular Strength/Stabilization Comment: RTC For the Purpose of:: To decrease pain, To increase ROM, To improve muscle performance and motor function, To improve ability to perform ADL's, To increase tolerance to activity/condition/position, To improve ability of physical actions for home/community/work/leisure, To improve health of tissue, To decrease soft tissue restriction and To increase flexibility/ROM Manual Therapy Techniques to Include: Mobilization and Passive ROM Comment: G-H GRADE 2-4 For the Purpose of:: To decrease pain, To increase ROM, To improve nutrient delivery to tissue, To increase oxygenation perfusion, To improve health of tissue and To increase flexibility/ROM TENS: Yes IF ES: Yes Cryotherapy (ice pack, ice massage): Yes Thermo therapy (hot pack): Yes Ultrasound (thermal/non thermal): Yes For the Purpose of:: To decrease pain, To decrease swelling/inflammation, To increase ROM, To improve nutrient delivery to tissue, To increase oxygenation perfusion, To improve health of tissue and To decrease soft tissue restriction Text: Thank you for the opportunity to evaluate your patient. For Medicare and Medicare HMO plans, please review the plan of care and approve it. It will need to be FAXED BACK to us at [phone] for Medicare purposes. For Medicare only, by signing this I certify the plan of care. Please let me know if there are questions or concerns regarding this plan of care. Physician Signature: Date:
--- NOTE | 2024-04-06 11:56 | HP.PTDCSUM ---
Discharge Summary D/C summary: It has been my pleasure to treat AXEL GARDNER referred by Dr. Krishan Palmer MD, with the diagnosis of ADHESIVE CAPSULITIS OF LEFT SHOULDER ,PAIN IN LEFT SHOULDER, DISORDER for a total of 21 visit(s). Discharge Date: Please see the following information for a summary of their discharge status. Subjective Subjective: Patient seen DR and doing well Most difficulty IR Pain Left Shoulder: Pain Intensity (Out of 10): 0 Overall Improvement % Improvement: 90 Objective Objective/Function: AROM: shoulder flexion 150 degrees ,abduction 165 ,ER 90 ,IR L3 ER: 14.5 IR: 1.8 anterior deltoid: 22.4 Lateral deltoid :15.5 Goals Goal 1:: Patient to improve HEP Goal Progress: Goal Met Goal 2:: Patient to improve AROM shoulder flexion /abduction 150 degrees ,ER 75> degrees and IR L2 physiological motion and scapular humeral rhythm to improve ADL's and function.(new goal) Goal Progress: Goal Met Goal 3:: Patient to improve peak force RTC and deltoid by 20# to improve ADLS and housework tasks Goal Progress: Goal Met Goal 4:: Patient to demonstrate 70% improvement with increase function LUE and less pain. Goal Progress: Goal Met Goal 5:: Patient to improve quick dash score by 5-10 points to improve QOL and function Goal Progress: Goal Met Plan Plan: D/C D/C Information d/c sentence: If there are questions or concerns regarding this patient's physical therapy, please feel free to call me at [phone]. Thank you for the referral of this patient. Sincerely, Mike Diaz, PT, Cert MDT, OCS Balance/Gait/Functional tests Balance/Special Test Scores Quick DASH Score: 0 Improvement % Improvement: 90
== END 2024-04-06 19:00 | disposition home or self-care (01) ==
LOC: PT 11:30
PROVIDERS: PCP Family Medicine; Referring Provider Orthopaedic Surgery Sports Medicine; Visit Provider Orthopaedic Surgery Sports Medicine
DX: M25.812 Other specified joint disorders, left shoulder (principal); M75.02 Adhesive capsulitis of left shoulder; M25.512 Pain in left shoulder
CPT/HCPCS: 97110; 97161; 97530

== ENCOUNTER → 2024-10-18 | Outpatient (CLI) | payer OTHER, SELFPAY ==
--- NOTE | 2024-10-18 07:07 | BI_ITS ---
PROCEDURE: SCRN MAMM (CAD)W/TANIA BILAT REASON FOR EXAM: F, Age 54 y/o, no family history. History of prior left core biopsy. TECHNIQUE: Bilateral screening digital breast tomosynthesis with 2D and 3D images. Computer aided detection. COMPARISON: Prior exam(s) dating back to comparison is made with prior study dated August 26, 2023.. FINDINGS: The breasts are extremely dense which lowers the sensitivity of mammography. No suspicious masses, areas of developing architectural distortion, or suspicious calcifications. Stable examination. BI/SCRN MAMM (CAD)W/TANIA BILAT IMPRESSION: BI-RADS 1: NEGATIVE. RECOMMEND ANNUAL MAMMOGRAPHIC SCREENING. Follow-up code: Routine Follow-up The patient will be notified of the results by letter. Reading Location: [place] [id number]
== END | disposition home or self-care (01) ==
LOC: OPBI 07:05
PROVIDERS: PCP Family Medicine; Referring Provider Family Medicine; Visit Provider Family Medicine
DX: Z12.31 Encounter for screening mammogram for malignant neoplasm of breast (principal)
CPT/HCPCS: 77063; 77067